=== PATIENT | female | born 1955 | race American Indian/Alaskan Native ===

== ENCOUNTER 2018-07-09 10:50 | Inpatient (IN) | payer SELFPAY ==
--- NOTE | 2018-07-09 11:47 | Emergency Department Report ---
ED Neuro Deficit HPI - General Chief Complaint: Neuro Symptoms/Deficit Stated Complaint: LFT SIDE HEAD PAIN Time Seen by Provider: 07/09/18 11:44 Source: patient Mode of arrival: Ambulatory Limitations: No Limitations - History of Present Illness Initial Comments: Is a 62-year-old female presents emergent with left sided headache and left- sided facial numbness and left-sided arm numbness and left-sided leg numbness. Patient states that this all started at 6 this morning. Patient had a stroke in 2002. Patient states the headache is a 1010. Patient states the pain is better with rest and worse with movement and exertion. Patient states that her last stroke felt the same. Patient states her last stroke left her with no neuro deficits. She denies chest pain shortness of breath. Patient denies abdominal pain. Patient denies blurred vision. She denies dizziness. As noted wellness 6 AM -: Sudden Location: left face, left arm, left leg Presenting Symptoms: Present: Sudden, Severe Headache, Facial Droop/Numbness History of same: Yes Place: home Severity: severe Improves With: rest On Anticoagulants: No Context: sudden onset Associated Symptoms: headaches, weakness. denies: confusion, chest pain, cough , diaphoresis, fever/chills, loss of appetite, malise, nausea/vomiting, vertigo , seizures, shortness of breath, syncope - Related Data Home Medications: Home Medications Medication Instructions Recorded Confirmed Last Taken Losartan [Cozaar] 50 mg PO QDAY 07/09/18 07/09/18 07/09/18 Allergies/Adverse Reactions: Allergies Allergy/AdvReac Type Severity Reaction Status Date / Time No Known Allergies Allergy Unverified 04/16/16 11:10 ED Review of Systems ROS: Stated complaint: LFT SIDE HEAD PAIN Other details as noted in HPI Constitutional: weakness. denies: chills, fever Eyes: denies: eye pain, eye discharge, vision change ENT: denies: ear pain, throat pain Respiratory: denies: cough, shortness of breath, wheezing Cardiovascular: denies: chest pain, palpitations Endocrine: no symptoms reported Gastrointestinal: denies: abdominal pain, nausea, diarrhea Genitourinary: denies: urgency, dysuria, discharge Musculoskeletal: denies: back pain, joint swelling, arthralgia Skin: denies: rash, lesions Neurological: headache, weakness, numbness, abnormal gait Psychiatric: denies: anxiety, depression Hematological/Lymphatic: denies: easy bleeding, easy bruising ED Past Medical Hx - Past Medical History Previous Medical History?: Yes Hx Hypertension: Yes Hx CVA: Yes - Surgical History Past Surgical History?: Yes Additional Surgical History: hysterectomy - Family History Family history: hypertension - Social History Smoking Status: Never Smoker Substance Use Type: None - Medications Home Medications: Home Medications Medication Instructions Recorded Confirmed Last Taken Type Losartan [Cozaar] 50 mg PO QDAY 07/09/18 07/09/18 07/09/18 History ED Neuro Physical Exam - General Limitations: No Limitations General appearance: alert, in no apparent distress Suspected Stroke: Yes - Head Head exam: Present: atraumatic, normocephalic - Eye Eye exam: Present: normal appearance - ENT ENT exam: Present: mucous membranes moist - Neck Neck exam: Present: normal inspection - Respiratory Respiratory exam: Present: normal lung sounds bilaterally. Absent: respiratory distress - Cardiovascular Cardiovascular Exam: Present: regular rate, normal rhythm. Absent: systolic murmur, diastolic murmur, rubs, gallop - GI/Abdominal GI/Abdominal exam: Present: soft, normal bowel sounds - Extremities Exam Extremities exam: Present: normal inspection - Back Exam Back exam: Present: normal inspection - Neurological Exam Neurological exam: Present: alert, oriented X3 - NIHSS Assessment Interval: Baseline 1a. Level of Consciousness: alert/keenly responsive 1b. LOC Questions: answers both correctly 1c. LOC Commands: performs tasks correctly 2. Best Gaze: normal 3. Visual: no visual loss 4. Facial Palsy: minor paralysis 5b. Motor Arm Right: no drift 5a. Motor Arm Left: no drift 6a. Motor Leg Left: no drift 6b. Motor Leg Right: no drift 7. Limb Ataxia: absent 8. Sensory: mild/moderate sensory loss 9. Best Language: no aphasia 10. Dysarthria: normal 11. Extinction/Inattention: no abnormality Total Score: 2 Stroke Severity: Minor Stroke - Psychiatric Psychiatric exam: Present: normal affect, normal mood - Skin Skin exam: Present: warm, dry, intact, normal color. Absent: rash ED Course Vital Signs 07/09/18 07/09/18 07/09/18 11:30 12:22 12:31 Temperature 98.5 F Pulse Rate 74 66 64 Respiratory 20 14 15 Rate Blood Pressure 168/92 O2 Sat by Pulse 99 98 Oximetry 07/09/18 07/09/18 07/09/18 12:45 13:01 13:39 Temperature Pulse Rate 71 62 70 Respiratory 12 15 20 Rate Blood Pressure 178/82 178/82 O2 Sat by Pulse 99 95 95 Oximetry 07/09/18 07/09/18 07/09/18 14:05 14:15 14:31 Temperature Pulse Rate 91 H 66 63 Respiratory 17 16 17 Rate Blood Pressure 178/82 149/64 157/87 O2 Sat by Pulse 94 95 Oximetry 07/09/18 07/09/18 07/09/18 14:45 15:00 15:15 Temperature Pulse Rate 59 L 60 Respiratory 24 32 H Rate Blood Pressure 163/66 158/71 163/66 O2 Sat by Pulse 98 97 91 Oximetry 07/09/18 07/09/18 07/09/18 15:25 15:31 15:45 Temperature Pulse Rate 59 L 64 Respiratory 16 18 15 Rate Blood Pressure 160/68 160/68 O2 Sat by Pulse 99 98 99 Oximetry 07/09/18 07/09/18 07/09/18 16:01 16:15 16:31 Temperature Pulse Rate 67 62 65 Respiratory 18 17 20 Rate Blood Pressure 160/68 160/68 160/68 O2 Sat by Pulse Oximetry 07/09/18 07/09/18 07/09/18 16:45 17:01 17:15 Temperature Pulse Rate 67 71 73 Respiratory 20 14 14 Rate Blood Pressure 160/68 160/68 160/68 O2 Sat by Pulse Oximetry 07/09/18 07/09/18 07/09/18 17:31 17:34 17:45 Temperature Pulse Rate 70 69 Respiratory 21 14 24 Rate Blood Pressure 150/89 150/89 O2 Sat by Pulse 95 97 Oximetry 07/09/18 07/09/18 18:01 18:15 Temperature Pulse Rate 82 76 Respiratory 14 17 Rate Blood Pressure 150/89 150/89 O2 Sat by Pulse 99 97 Oximetry - Reevaluation(s) Reevaluation #1: Normal brain per radiologist. Radiologist called report 07/09/18 12:03 Reevaluation #2: Patient believes she might have had a allergic reaction to CT dye in the past. Patient states she does not have any problems with her breathing or rash is not quite sure what the allergy is but does remember a reaction of some sort. We' ll give patient solu-medrol and Benadryl and continue with a CTA. Patient is agreeable with plan of care 07/09/18 13:36 Discussed all results with patient. Patient agrees with plan of care and admission. Patient admitted to the hospitalist service for further evaluation treatment 07/09/18 15:58 - Consultations Consultation #1: Neurologist consulted. Dr chowdhury, neurologist will see patient. 07/09/18 12:[address] Chowdhury it appears patient has had a CVA but Dr. Chowdhury does not recommend TPA at this time due to patient being outside of the treatment window. However. Dr chowdhury does recommend a CTA of the head and neck at this time. We'll order a CTA and neck and head 07/09/18 13:00 Consultation #2: Hospitalist consulted for admission. Hospitalist to admit patient. Dr. Belle to assume care 07/09/18 15:58 - Lab Data Result diagrams: 07/09/18 12:05 07/09/18 12:56 Lab Results 07/09/18 07/09/18 07/09/18 Range/Units 11:46 12:05 12:56 WBC 4.8 (4.5-11.0) K/mm3 RBC 5.75 H (3.65-5.03) M/mm3 Hgb 13.1 (10.1-14.3) gm/dl Hct 40.1 (30.3-42.9) % MCV 70 L (79-97) fl MCH 23 L (28-32) pg MCHC 33 (30-34) % RDW 16.6 H (13.2-15.2) % Plt Count 290 (140-440) K/mm3 Lymph % (Auto) 50.2 H (13.4-35.0) % [place] % (Auto) 7.9 H (0.0-7.3) % Eos % (Auto) 2.1 (0.0-4.3) % Baso % (Auto) 0.8 (0.0-1.8) % Lymph # 2.4 (1.2-5.4) K/mm3 [place] # 0.4 (0.0-0.8) K/mm3 Eos # 0.1 (0.0-0.4) K/mm3 Baso # 0.0 (0.0-0.1) K/mm3 Seg Neutrophils % 39.0 L (40.0-70.0) % Seg Neutrophils # 1.9 (1.8-7.7) K/mm3 PT 12.9 (12.2-14.9) Sec. INR 0.92 (0.87-1.13) APTT 31.7 (24.2-36.6) Sec. Thrombin Time 32.6 H (15.1-19.6) Sec. Sodium (137-145) mmol/L Potassium (3.6-5.0) mmol/L Chloride (98-107) mmol/L Carbon Dioxide (22-30) mmol/L Anion Gap mmol/L BUN (7-17) mg/dL Creatinine (0.7-1.2) mg/dL Estimated GFR ml/min BUN/Creatinine Ratio % Glucose (65-100) mg/dL POC Glucose 91 (70-105) Calcium (8.4-10.2) mg/dL Total Creatine Kinase (30-135) units/L CK-MB (CK-2) (0.0-4.0) ng/mL CK-MB (CK-2) Rel Index (0-4) Troponin T (0.00-0.029) ng/mL 07/09/18 07/09/18 Range/Units 12:56 12:56 WBC (4.5-11.0) K/mm3 RBC (3.65-5.03) M/mm3 Hgb (10.1-14.3) gm/dl Hct (30.3-42.9) % MCV (79-97) fl MCH (28-32) pg MCHC (30-34) % RDW (13.2-15.2) % Plt Count (140-440) K/mm3 Lymph % (Auto) (13.4-35.0) % [place] % (Auto) (0.0-7.3) % Eos % (Auto) (0.0-4.3) % Baso % (Auto) (0.0-1.8) % Lymph # (1.2-5.4) K/mm3 [place] # (0.0-0.8) K/mm3 Eos # (0.0-0.4) K/mm3 Baso # (0.0-0.1) K/mm3 Seg Neutrophils % (40.0-70.0) % Seg Neutrophils # (1.8-7.7) K/mm3 PT (12.2-14.9) Sec. INR (0.87-1.13) APTT (24.2-36.6) Sec. Thrombin Time (15.1-19.6) Sec. Sodium 137 (137-145) mmol/L Potassium 4.4 (3.6-5.0) mmol/L Chloride 100.3 (98-107) mmol/L Carbon Dioxide 26 (22-30) mmol/L Anion Gap 15 mmol/L BUN 12 (7-17) mg/dL Creatinine 0.8 (0.7-1.2) mg/dL Estimated GFR > 60 ml/min BUN/Creatinine Ratio 15 % Glucose 89 (65-100) mg/dL POC Glucose (70-105) Calcium 8.9 (8.4-10.2) mg/dL Total Creatine Kinase 248 H (30-135) units/L CK-MB (CK-2) 2.8 (0.0-4.0) ng/mL CK-MB (CK-2) Rel Index 1.1 (0-4) Troponin T < 0.010 < 0.010 (0.00-0.029) ng/mL - EKG Data -: EKG Interpreted by Tx EKG shows normal: sinus rhythm, axis, intervals, QRS complexes, ST-T waves Rate: tachycardia - Radiology Data Radiology results: report reviewed CT HEAD WITHOUT CONTRAST: HISTORY: Neurological deficit, stroke. TECHNIQUE: Sequential 2.5mm CT images. COMPARISON: none. FINDINGS: Cerebral Parenchyma: Within normal limits. Cerebellum: Within normal limits. Brainstem: Within normal limits. Ventricles: Normal. Sella: Normal. Extra-axial spaces: Normal. Basal Cisterns: Normal. Intracranial Hemorrhage: None. Midline Shift: None. Calvarium: Normal. Sinuses: Normal. Mastoid Air Cells: Normal. Visualized Orbits: Normal. IMPRESSION: Cranial CT scan within normal limits. These findings were discussed with Dr. Dc in the emergency department at 1202 hrs. Transcribed By: TTR Dictated By: HAILEE RUTH JR, MD Electronically Authenticated By: HAILEE RUTH JR, MD Signed Date/Time: 07/09/18 1202 CTA HEAD: HISTORY: CVA, weakness. TECHNIQUE: Helical CT images after IV contrast with 0.625mm reformations. Sagittal and coronal reformats. Rotational MIP images. 3D volume rendering technique. FINDINGS: The arterial structures of the anterior and posterior circulations are patent throughout. No evidence for stenosis, occlusion or aneurysm. IMPRESSION: Unremarkable CTA head. Transcribed By: TTR Dictated By: HAILEE RUTH JR, MD Electronically Authenticated By: HAILEE RUTH JR, MD Signed Date/Time: 07/09/18 1519 CTA NECK: HISTORY: CVA, weakness. TECHNIQUE: Helical CT following IV contrast. Sagittal and coronal reformatted images. 3D volume rendering technique. Stenosis was calculated using NASCET criteria with the distal ICA being standard diameter. FINDINGS: The visualized aortic arch, innominate artery and proximal bilateral subclavian arteries are widely patent with less than 20% stenosis. Within the right carotid system: Less than 20% stenosis. Within the left carotid system: Less than 20% stenosis. The cervical vertebral arteries are patent with less than 20% stenosis. IMPRESSION: Unremarkable CTA of the neck. Transcribed By: TTR Dictated By: HAILEE RUTH JR, MD Electronically Authenticated By: HAILEE RUTH JR, MD Signed Date/Time: 07/09/18 1518 - Medical Decision Making This 52-year-old female that presented to the emergency room with left-sided weakness and numbness and severe headache. Patient stroke protocol done. Neurology is consulted and saw patient. Recommendations received. Neurologist did not recommend TPA however did recommend a CTA of the brain and neck. CTA of the head and neck were negative. CT of the head was negative. Labs were unremarkable. Patient will be admitted to the hospital service for further eval and treatment. - Differential Diagnosis weakness, numbness, facial droop, CVA dehydration Critical Care Time: Yes Critical care attestation.: If time is entered above; I have spent that time in minutes in the direct care of this critically ill patient, excluding procedure time. Critical Care Time: 45 minute for cc time ED Disposition Clinical Impression: Weakness, Numbness and tingling of left arm and leg, Facial droop CVA (cerebral vascular accident) Qualifiers: CVA mechanism: unspecified Qualified Code(s): I63.9 - Cerebral infarction, unspecified Disposition: - OP ADMIT IP TO THIS HOSP Is pt being admited?: Yes Does the pt Need Aspirin: No Condition: Critical Time of Disposition: 15:59 - Assessment Assessment Interval: Baseline - Level of Consciousness 1a. Level of Consciousness: alert/keenly responsive - LOC Questions 1b. LOC Questions: answers both correctly - LOC Command 1c. LOC Commands: performs tasks correctly - Best Gaze 2. Best Gaze: normal - Visual 3. Visual: no visual loss - Facial Palsy 4. Facial Palsy: minor paralysis - Motor Arm 5b. Motor Arm Right: no drift 5a. Motor Arm Left: no drift - Motor Leg 6a. Motor Leg Left: no drift 6b. Motor Leg Right: no drift - Limb Ataxia 7. Limb Ataxia: absent - Sensory 8. Sensory: mild/moderate sensory loss - Best Language 9. Best Language: no aphasia - Dysarthria 10. Dysarthria: normal - Extinction and Inattention 11. Extinction/Inattention: no abnormality - Scoring Total Score: 2 Stroke Severity: Minor Stroke
--- NOTE | 2018-07-09 12:03 | Cat Scan Report ---
CT HEAD WITHOUT CONTRAST: HISTORY: Neurological deficit, stroke. TECHNIQUE: Sequential 2.5mm CT images. COMPARISON: none. FINDINGS: Cerebral Parenchyma: Within normal limits. Cerebellum: Within normal limits. Brainstem: Within normal limits. Ventricles: Normal. Sella: Normal. Extra-axial spaces: Normal. Basal Cisterns: Normal. Intracranial Hemorrhage: None. Midline Shift: None. Calvarium: Normal. Sinuses: Normal. Mastoid Air Cells: Normal. Visualized Orbits: Normal. IMPRESSION: Cranial CT scan within normal limits. These findings were discussed with Dr. Dc in the emergency department at 1202 hrs.
[2018-07-09 12:29] LABS: Basophils % (Auto) 0.8 % (0.0-1.8); Eosinophils # (Auto) 0.1 K/mm3 (0.0-0.4); Eosinophils % (Auto) 2.1 % (0.0-4.3); Hematocrit 40.1 % (30.3-42.9); Hemoglobin 13.1 gm/dl (10.1-14.3); Lymphocytes # (Auto) 2.4 K/mm3 (1.2-5.4); Lymphocytes % (Auto) 50.2 % (13.4-35.0); Mean Corpuscular HGB Conc 33 % (30-34); Mean Corpuscular Hemoglobin 23 pg (28-32); Mean Corpuscular Volume 70 fl (79-97); Monocytes # (Auto) 0.4 K/mm3 (0.0-0.8); Monocytes % (Auto) 7.9 % (0.0-7.3); Platelet Count 290 K/mm3 (140-440); Red Blood Count 5.75 M/mm3 (3.65-5.03); Red Cell Distribution Width 16.6 % (13.2-15.2)
[2018-07-09 13:16] LABS: INR 0.92 (0.87-1.13)
[2018-07-09 13:17] LABS: Partial Thromboplastin Time 31.7 Sec. (24.2-36.6)
[2018-07-09 13:18] LABS: Thrombin Time 32.6 Sec. (15.1-19.6)
[2018-07-09 13:25] LABS: BUN/Creatinine Ratio 15; Blood Urea Nitrogen 12 mg/dL (7-17); Calcium 8.9 mg/dL (8.4-10.2); Hemolysis Index 1
[2018-07-09 13:28] LABS: Creatine Kinase MB 2.8 ng/mL (0.0-4.0)
[2018-07-09] MEDS ORDERED: SOLU-Medrol IV ONE (13:37)
[2018-07-09] MEDS ORDERED: BENADRYL IV ONE (13:37)
--- NOTE | 2018-07-09 15:19 | Cat Scan Report ---
CTA HEAD: HISTORY: CVA, weakness. TECHNIQUE: Helical CT images after IV contrast with 0.625mm reformations. Sagittal and coronal reformats. Rotational MIP images. 3D volume rendering technique. FINDINGS: The arterial structures of the anterior and posterior circulations are patent throughout. No evidence for stenosis, occlusion or aneurysm. IMPRESSION: Unremarkable CTA head.
--- NOTE | 2018-07-09 15:19 | Cat Scan Report ---
CTA NECK: HISTORY: CVA, weakness. TECHNIQUE: Helical CT following IV contrast. Sagittal and coronal reformatted images. 3D volume rendering technique. Stenosis was calculated using NASCET criteria with the distal ICA being standard diameter. FINDINGS: The visualized aortic arch, innominate artery and proximal bilateral subclavian arteries are widely patent with less than 20% stenosis. Within the right carotid system: Less than 20% stenosis. Within the left carotid system: Less than 20% stenosis. The cervical vertebral arteries are patent with less than 20% stenosis. IMPRESSION: Unremarkable CTA of the neck.
[2018-07-09] MEDS ORDERED: MORPHINE IV PRN (17:02)
[2018-07-09] MEDS ORDERED: MORPHINE ONE ×2 (17:07→21:32)
[2018-07-09] MEDS ORDERED: DILAUDID ONE (18:02)
[2018-07-09] MEDS ORDERED: DILAUDID IV ONE (18:05)
--- NOTE | 2018-07-09 21:55 | History and Physical Report ---
History of Present Illness Date of examination: 07/09/18 Date of admission: 07/09/18 16:07 Chief complaint: Chief complaint: Left-sided weakness History of present illness: History of Present Illness: 62-year-old female presents with left-sided headache and left-sided facial numbness and left-sided arm numbness and left lower extremity numbness since 6 AM this morning. Patient says that the numbness is better she also has weakness on the left side to some extent. Patient had a stroke in 2002 for which she has recovered no neuro deficits. No syncope or chest pain. The complaint is more in favor of left-sided numbness. No exacerbating or relieving factors Past Medical History Previous Medical History?: Yes Hx Hypertension: Yes Hx CVA: Yes Surgical History Past Surgical History?: Yes Additional Surgical History: hysterectomy Family History Family history: hypertension Social History Smoking Status: Never Smoker Substance Use Type: None -Medications Home Medications: Home Medications Medication Instructions Recorded Confirmed Last Taken Type Losartan [Cozaar] 50 mg PO QDAY 07/09/18 07/09/18 07/09/18 History Review of Systems ROS: Stated complaint: LFT SIDE HEAD PAIN Other details as noted in HPI Constitutional: weakness. denies: chills, fever Eyes: denies: eye pain, eye discharge, vision change ENT: denies: ear pain, throat pain Respiratory: denies: cough, shortness of breath, wheezing Cardiovascular: denies: chest pain, palpitations Endocrine: no symptoms reported Gastrointestinal: denies: abdominal pain, nausea, diarrhea Genitourinary: denies: urgency, dysuria, discharge Musculoskeletal: denies: back pain, joint swelling, arthralgia Skin: denies: rash, lesions Neurological: headache, weakness, numbness, abnormal gait Psychiatric: denies: anxiety, depression Hematological/Lymphatic: denies: easy bleeding, easy bruising Medications and Allergies Allergies Allergy/AdvReac Type Severity Reaction Status Date / Time No Known Allergies Allergy Unverified 04/16/16 11:10 Home Medications Medication Instructions Recorded Confirmed Last Taken Type Losartan [Cozaar] 50 mg PO QDAY 07/09/18 07/09/18 07/09/18 History Active Meds: Active Medications Morphine Sulfate (Morphine) 2 mg IV Q4H PRN PRN Reason: Pain, Moderate (4-6) Last Admin: 07/09/18 17:34 Dose: 2 mg Exam - Physical Exam Narrative exam: Lying in bed comfortably - Constitutional Vitals: Temp Pulse Resp BP Pulse Ox 98.5 F 73 17 153/81 95 07/09/18 11:30 07/09/18 20:15 07/09/18 20:15 07/09/18 20:15 07/09/18 20:15 General appearance: Present: no acute distress, well-nourished - EENT Eyes: Present: PERRL ENT: hearing intact, clear oral mucosa - Neck Neck: Present: supple, normal ROM - Respiratory Respiratory effort: normal Respiratory: bilateral: CTA - Cardiovascular Heart rate: 64 Rhythm: regular (64) Heart Sounds: Present: S1 & S2. Absent: rub, click - Extremities Extremities: pulses symmetrical, No edema Peripheral Pulses: within normal limits - Abdominal General gastrointestinal: Present: soft, non-tender, non-distended, normal bowel sounds Female genitourinary: Present: normal - Rectal Rectal Exam: deferred - Integumentary Integumentary: Present: clear, warm, dry - Musculoskeletal Musculoskeletal: left sided weakness (mild left-sided weakness present. 4 over 5 power in left upper extremity and left lower extremity. Sensation decreased.) - Psychiatric Psychiatric: appropriate mood/affect, intact judgment & insight, memory intact, cooperative - Neurologic Neurologic: CNII-XII intact, focal deficits (left-sided weakness), moves all extremities, gait normal (gait could not be tested) Results - Labs CBC & Chem 7: 07/09/18 12:05 07/09/18 12:56 Labs: Laboratory Last Values WBC 4.8 K/mm3 (4.5-11.0) 07/09/18 12:05 RBC 5.75 M/mm3 (3.65-5.03) H 07/09/18 12:05 Hgb 13.1 gm/dl (10.1-14.3) 07/09/18 12:05 Hct 40.1 % (30.3-42.9) 07/09/18 12:05 MCV 70 fl (79-97) L 07/09/18 12:05 MCH 23 pg (28-32) L 07/09/18 12:05 MCHC 33 % (30-34) 07/09/18 12:05 RDW 16.6 % (13.2-15.2) H 07/09/18 12:05 Plt Count 290 K/mm3 (140-440) 07/09/18 12:05 Lymph % (Auto) 50.2 % (13.4-35.0) H 07/09/18 12:05 [place] % (Auto) 7.9 % (0.0-7.3) H 07/09/18 12:05 Eos % (Auto) 2.1 % (0.0-4.3) 07/09/18 12:05 Baso % (Auto) 0.8 % (0.0-1.8) 07/09/18 12:05 Lymph # 2.4 K/mm3 (1.2-5.4) 07/09/18 12:05 [place] # 0.4 K/mm3 (0.0-0.8) 07/09/18 12:05 Eos # 0.1 K/mm3 (0.0-0.4) 07/09/18 12:05 Baso # 0.0 K/mm3 (0.0-0.1) 07/09/18 12:05 Seg Neutrophils % 39.0 % (40.0-70.0) L 07/09/18 12:05 Seg Neutrophils # 1.9 K/mm3 (1.8-7.7) 07/09/18 12:05 PT 12.9 Sec. (12.2-14.9) 07/09/18 12:56 INR 0.92 (0.87-1.13) 07/09/18 12:56 APTT 31.7 Sec. (24.2-36.6) 07/09/18 12:56 Thrombin Time 32.6 Sec. (15.1-19.6) H 07/09/18 12:56 Sodium 137 mmol/L (137-145) 07/09/18 12:56 Potassium 4.4 mmol/L (3.6-5.0) 07/09/18 12:56 Chloride 100.3 mmol/L (98-107) 07/09/18 12:56 Carbon Dioxide 26 mmol/L (22-30) 07/09/18 12:56 Anion Gap 15 mmol/L 07/09/18 12:56 BUN 12 mg/dL (7-17) 07/09/18 12:56 Creatinine 0.8 mg/dL (0.7-1.2) 07/09/18 12:56 Estimated GFR > 60 ml/min 07/09/18 12:56 BUN/Creatinine Ratio 15 % 07/09/18 12:56 Glucose 89 mg/dL (65-100) 07/09/18 12:56 POC Glucose 91 (70-105) 07/09/18 11:46 Calcium 8.9 mg/dL (8.4-10.2) 07/09/18 12:56 Total Creatine Kinase 248 units/L (30-135) H 07/09/18 12:56 CK-MB (CK-2) 2.8 ng/mL (0.0-4.0) 07/09/18 12:56 CK-MB (CK-2) Rel Index 1.1 (0-4) 07/09/18 12:56 Troponin T < 0.010 ng/mL (0.00-0.029) 07/09/18 12:56 - Imaging and Cardiology EKG: report reviewed (normal sinus rhythm heart rate of 64 per minute) Imaging and Cardiology: CTA head FINDINGS: The arterial structures of the anterior and posterior circulations are patent throughout. No evidence for stenosis, occlusion or aneurysm. IMPRESSION: Unremarkable CTA head. CT of the neck FINDINGS: The visualized aortic arch, innominate artery and proximal bilateral subclavian arteries are widely patent with less than 20% stenosis. Within the right carotid system: Less than 20% stenosis. Within the left carotid system: Less than 20% stenosis. The cervical vertebral arteries are patent with less than 20% stenosis. IMPRESSION: Unremarkable CTA of the neck. CT head IMPRESSION: Cranial CT scan within normal limits. These findings were discussed with Dr. Dc in the emergency department at 1202 hrs. Assessment and Plan Advance Directives: Yes (full code) VTE prophylaxis?: Chemical Plan of care discussed with patient/family: Yes - Patient Problems (1) CVA (cerebral vascular accident) Current Visit: Yes Status: Acute Qualifiers: CVA mechanism: unspecified Qualified Code(s): I63.9 - Cerebral infarction, unspecified Plan to address problem: Possible thalamic stroke in view of left-sided numbness CT angiogram of the neck and head are negative We will get MRI echocardiogram and carotid duplex scan. Neurologic consult by Dr. brandon. Plavix initiated (2) Numbness and tingling of left arm and leg Current Visit: Yes Status: Acute Plan to address problem: Same as above (3) Hypertension Current Visit: Yes Status: Chronic Qualifiers: Hypertension type: essential hypertension Qualified Code(s): I10 - Essential (primary) hypertension Plan to address problem: Continue antihypertensives (4) DVT prophylaxis Current Visit: Yes Status: Acute Plan to address problem: Patient on Lovenox GI prophylaxis initiated
[2018-07-09] MEDS ORDERED: AMBIEN PO PRN (22:00)
[2018-07-09] MEDS ORDERED: TYLENOL PO PRN (22:00)
[2018-07-09] MEDS ORDERED: ZOFRAN IV PRN (22:00)
[2018-07-09] MEDS ORDERED: SODIUM CHLORIDE FLUSH SYRINGE 10 ML IV PRN ×2 (22:00→22:03)
[2018-07-09] MEDS ORDERED: PERCOCET 5/325 PO PRN ×2 (22:00→22:10)
[2018-07-09] MEDS ORDERED: APRESOLINE IV PRN (22:03)
[2018-07-09] MEDS: PEPCID PO SCH (22:35)
[2018-07-09] MEDS: SODIUM CHLORIDE FLUSH SYRINGE 10 ML IV SCH (22:35)
[2018-07-10 06:28] LABS: Basophils % (Auto) 0.1 % (0.0-1.8); Hematocrit 40.4 % (30.3-42.9); Hemoglobin 12.9 gm/dl (10.1-14.3); Lymphocytes # (Auto) 0.8 K/mm3 (1.2-5.4); Lymphocytes % (Auto) 8.6 % (13.4-35.0); Mean Corpuscular HGB Conc 32 % (30-34); Mean Corpuscular Volume 71 fl (79-97); Monocytes # (Auto) 0.4 K/mm3 (0.0-0.8); Monocytes % (Auto) 4.1 % (0.0-7.3); Platelet Count 270 K/mm3 (140-440); Red Blood Count 5.67 M/mm3 (3.65-5.03)
[2018-07-10 06:29] LABS: Mean Corpuscular Hemoglobin 23 pg (28-32)
[2018-07-10 06:50] LABS: Alanine Aminotransferase 13 units/L (7-56); Albumin 3.9 g/dL (3.9-5); BUN/Creatinine Ratio 18; Blood Urea Nitrogen 16 mg/dL (7-17); LDL Cholesterol,Direct 139 mg/dL (50-130)
[2018-07-10 06:51] LABS: HDL Cholesterol 51 mg/dL (40-59); Hemolysis Index 3
[2018-07-10] MEDS ORDERED: ATIVAN IV NR (09:00)
--- NOTE | 2018-07-10 14:09 | Progress Note ---
Assessment and Plan Assessment and plan: Patient is a 62 yo woman with a history of hypertension and CVA without deficits who pw headaches, left sided numbness. * CT head without contrast report as normal * CTA head and CTA neck reported as unremarkable CVA (cerebral vascular accident) Current Visit: Yes Status: Acute Qualifiers: CVA mechanism: unspecified Qualified Code(s): I63.9 - Cerebral infarction, unspecified Plan to address problem: Possible thalamic stroke in view of left-sided numbness CT angiogram of the neck and head are negative We will get MRI echocardiogram and carotid duplex scan. Neurologic consult by Dr. brandon. Plavix initiated Numbness and tingling of left arm and leg Current Visit: Yes Status: Acute Plan to address problem: Same as above Hypertension Current Visit: Yes Status: Chronic Qualifiers: Hypertension type: essential hypertension Qualified Code(s): I10 - Essential (primary) hypertension Plan to address problem: Continue antihypertensives DVT prophylaxis Current Visit: Yes Status: Acute Plan to address problem: Patient on Lovenox GI prophylaxis initiated Disposition: continue inpatient care, if mri negative for stroke, will discharge and attriibute her symptoms to spinal dysfunction and recommend outpatient ortho spine surgeon referral . History Interval history: Patient was seen and examined. Follow-up on current diagnosis of headaches which has improved. Overnight uneventful. Patient denies any chest pain, shortness breath, nausea/vomiting. Imaging, nursing note, chart, labs and old chart reviewed. Discussed with patient. 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 Neuro: CN 2-12 grossly intact, no new focal deficits Psych: calm - Constitutional Vitals: Temp Pulse Resp BP Pulse Ox 97.8 F 66 20 136/84 98 07/10/18 08:01 07/10/18 08:01 07/10/18 08:01 07/10/18 08:01 07/10/18 08:01 General appearance: Present: no acute distress, well-nourished Results - Labs CBC & Chem 7: 07/10/18 05:39 07/10/18 05:39 Labs: Laboratory Last Values WBC 9.7 K/mm3 (4.5-11.0) 07/10/18 05:39 RBC 5.67 M/mm3 (3.65-5.03) H 07/10/18 05:39 Hgb 12.9 gm/dl (10.1-14.3) 07/10/18 05:39 Hct 40.4 % (30.3-42.9) 07/10/18 05:39 MCV 71 fl (79-97) L 07/10/18 05:39 MCH 23 pg (28-32) L 07/10/18 05:39 MCHC 32 % (30-34) 07/10/18 05:39 RDW 16.0 % (13.2-15.2) H 07/10/18 05:39 Plt Count 270 K/mm3 (140-440) 07/10/18 05:39 Lymph % (Auto) 8.6 % (13.4-35.0) L 07/10/18 05:39 [place] % (Auto) 4.1 % (0.0-7.3) 07/10/18 05:39 Eos % (Auto) 0.0 % (0.0-4.3) 07/10/18 05:39 Baso % (Auto) 0.1 % (0.0-1.8) 07/10/18 05:39 Lymph # 0.8 K/mm3 (1.2-5.4) L 07/10/18 05:39 [place] # 0.4 K/mm3 (0.0-0.8) 07/10/18 05:39 Eos # 0.0 K/mm3 (0.0-0.4) 07/10/18 05:39 Baso # 0.0 K/mm3 (0.0-0.1) 07/10/18 05:39 Seg Neutrophils % 87.2 % (40.0-70.0) H 07/10/18 05:39 Seg Neutrophils # 8.4 K/mm3 (1.8-7.7) H 07/10/18 05:39 PT 12.9 Sec. (12.2-14.9) 07/09/18 12:56 INR 0.92 (0.87-1.13) 07/09/18 12:56 APTT 31.7 Sec. (24.2-36.6) 07/09/18 12:56 Thrombin Time 32.6 Sec. (15.1-19.6) H 07/09/18 12:56 Sodium 138 mmol/L (137-145) 07/10/18 05:39 Potassium 4.4 mmol/L (3.6-5.0) 07/10/18 05:39 Chloride 103.6 mmol/L (98-107) 07/10/18 05:39 Carbon Dioxide 22 mmol/L (22-30) 07/10/18 05:39 Anion Gap 17 mmol/L 07/10/18 05:39 BUN 16 mg/dL (7-17) 07/10/18 05:39 Creatinine 0.9 mg/dL (0.7-1.2) 07/10/18 05:39 Estimated GFR > 60 ml/min 07/10/18 05:39 BUN/Creatinine Ratio 18 % 07/10/18 05:39 Glucose 173 mg/dL (65-100) H 07/10/18 05:39 POC Glucose 91 (70-105) 07/09/18 11:46 Hemoglobin A1c 5.7 % (4-6) 07/09/18 22:52 Calcium 9.0 mg/dL (8.4-10.2) 07/10/18 05:39 Total Bilirubin 0.20 mg/dL (0.1-1.2) 07/10/18 05:39 AST 18 units/L (5-40) 07/10/18 05:39 ALT 13 units/L (7-56) 07/10/18 05:39 Alkaline Phosphatase 77 units/L (35-129) 07/10/18 05:39 Total Creatine Kinase 248 units/L (30-135) H 07/09/18 12:56 CK-MB (CK-2) 2.8 ng/mL (0.0-4.0) 07/09/18 12:56 CK-MB (CK-2) Rel Index 1.1 (0-4) 07/09/18 12:56 Troponin T < 0.010 ng/mL (0.00-0.029) 07/09/18 12:56 Total Protein 6.9 g/dL (6.3-8.2) 07/10/18 05:39 Albumin 3.9 g/dL (3.9-5) 07/10/18 05:39 Albumin/Globulin Ratio 1.3 % 07/10/18 05:39 Triglycerides 190 mg/dL (2-149) H 07/10/18 05:39 Cholesterol 204 mg/dL (50-199) H 07/10/18 05:39 LDL Cholesterol Direct 139 mg/dL (50-130) H 07/10/18 05:39 HDL Cholesterol 51 mg/dL (40-59) 07/10/18 05:39 Cholesterol/HDL Ratio 4.00 % 07/10/18 05:39
--- NOTE | 2018-07-10 14:24 | Consultation ---
History of Present Illness Consult date: 07/10/18 Requesting physician: KENYA AGUILAR Reason for Consult: left numbness and headache History of present illness: 62 year old female with history of hypertension, awakened in the a.m. of with left posterior headache, numbness and tingling of the left face, arm and leg. She states that the headache comes on fast, lasts for 2 to 3 minutes and goes away. The pain is severe. Dilaudid has been helping. She has also been feeling dizzy, unsteady. She felt the same way when she had a stroke in 2002. She has not bween on ASA or lipid lowering agent. She smokes on and off up to half pack per day. (15 years ) Past History Past Medical History: hypertension Social history: lives with family Medications and Allergies Allergies Allergy/AdvReac Type Severity Reaction Status Date / Time No Known Allergies Allergy Unverified 04/16/16 11:10 Home Medications Medication Instructions Recorded Confirmed Last Taken Type Losartan [Cozaar] 50 mg PO QDAY 07/09/18 07/09/18 07/09/18 History Active Meds: Active Medications Acetaminophen (Tylenol) 650 mg PO Q4H PRN PRN Reason: Pain MILD(1-3)/Fever >100.5/GRIMM Aspirin (Aspirin) 325 mg PO QDAY [facility] Atorvastatin Calcium (Lipitor) 40 mg PO QHS [facility] Clopidogrel Bisulfate (Plavix) 75 mg PO QDAY [facility] Enoxaparin Sodium (Lovenox) 40 mg SUB-Q QDAY@2200 [facility] Famotidine (Pepcid) 20 mg PO BID [facility] Last Admin: 07/09/18 22:35 Dose: 20 mg Hydralazine HCl (Apresoline) 5 mg IV Q6H PRN PRN Reason: Keep SBP between 160-185 mm Hg Hydromorphone HCl (Dilaudid) 1 mg IV Q4H PRN PRN Reason: Pain , Severe (7-10) Losartan Potassium (Cozaar) 50 mg PO QDAY [facility] Ondansetron HCl (Zofran) 4 mg IV Q8H PRN PRN Reason: Nausea And Vomiting Oxycodone/Acetaminophen (Percocet 5/325) 2 tab PO Q6H PRN PRN Reason: Pain, Moderate (4-6) Last Admin: 07/09/18 22:35 Dose: 2 tab Sodium Chloride (Sodium Chloride Flush Syringe 10 Ml) 10 ml IV BID [facility] Last Admin: 07/09/18 22:35 Dose: 10 ml Sodium Chloride (Sodium Chloride Flush Syringe 10 Ml) 10 ml IV PRN PRN PRN Reason: LINE FLUSH Sodium Chloride (Sodium Chloride Flush Syringe 10 Ml) 10 ml IV PRN PRN PRN Reason: LINE FLUSH Zolpidem Tartrate (Ambien) 5 mg PO QHS PRN PRN Reason: Insomnia Physical Examination - Vital Signs Vital Signs: Vital Signs Temp Pulse Resp BP Pulse Ox 98.5 F 74 20 168/92 99 07/09/18 11:30 07/09/18 11:30 07/09/18 11:30 07/09/18 11:30 07/09/18 11:30 - Physical Exam Narrative exam: Sitting up comfortably at the bedside. Neurological - speech fluent, no dysarthria. customer assistance associate - intact EOMs Cranial nerve V intact bilaterally. tongue midline. Hearing intact. Motor - Symmetric. poor effort in upper extremities. 5/5 LEs Reflexes - trace throughout. Sensory - reports intact sensation to touch bilaterally. Cerebellar - FTN, Chana, fine finger movements intact. Can stand up independently. Dizzy with standing. - Assessment Assessment Interval: Baseline - Level of Consciousness 1a. Level of Consciousness: alert/keenly responsive - LOC Questions 1b. LOC Questions: answers both correctly - LOC Command 1c. LOC Commands: performs tasks correctly - Best Gaze 2. Best Gaze: normal - Visual 3. Visual: no visual loss - Facial Palsy 4. Facial Palsy: minor paralysis - Motor Arm 5b. Motor Arm Right: no drift - Motor Leg 6a. Motor Leg Left: no drift - Limb Ataxia 7. Limb Ataxia: absent - Sensory 8. Sensory: mild/moderate sensory loss - Best Language 9. Best Language: no aphasia - Dysarthria 10. Dysarthria: normal - Extinction and Inattention 11. Extinction/Inattention: no abnormality Results - Laboratory Findings CBC and BMP: 07/10/18 05:39 07/10/18 05:39 Abnormal Lab Findings: Abnormal Labs 07/09/18 07/09/18 07/09/18 12:05 12:56 12:56 RBC 5.75 H MCV 70 L MCH 23 L RDW 16.6 H Lymph % (Auto) 50.2 H [place] % (Auto) 7.9 H Lymph # Seg Neutrophils % 39.0 L Seg Neutrophils # Thrombin Time 32.6 H Glucose Total Creatine Kinase 248 H Triglycerides Cholesterol LDL Cholesterol Direct 07/10/18 07/10/18 05:39 05:39 RBC 5.67 H MCV 71 L MCH 23 L RDW 16.0 H Lymph % (Auto) 8.6 L [place] % (Auto) Lymph # 0.8 L Seg Neutrophils % 87.2 H Seg Neutrophils # 8.4 H Thrombin Time Glucose 173 H Total Creatine Kinase Triglycerides 190 H Cholesterol 204 H LDL Cholesterol Direct 139 H Assessment and Plan 62 year old female with left facial numbness and limb numbness on day of admission. Seems better now. Ice pick type headache persists. CT brain, CTA brain and neck thus far unremarkable. Headache may be due to occipital neuralgia. Plan - complete stroke work-up. ASA, atorvastatin Neurontin 100 mg q 8 for headache, may increase to 300 mg q 8 if no relief. ordered thyroid panel and B-12 level
[2018-07-10] MEDS: COZAAR PO SCH (14:56)
[2018-07-10] MEDS: SODIUM CHLORIDE FLUSH SYRINGE 10 ML IV SCH ×2 (14:57→21:56)
[2018-07-10] MEDS: PLAVIX PO SCH (14:57)
[2018-07-10] MEDS: ASPIRIN PO SCH (14:57)
[2018-07-10] MEDS: PEPCID PO SCH ×2 (14:57→21:55)
[2018-07-10] MEDS: DILAUDID IV PRN ×2 (14:58→18:42)
[2018-07-10 16:49] LABS: Free T4 (Free Thyroxine) 0.99 ng/dL (0.76-1.46)
[2018-07-10] MEDS: NEURONTIN PO SCH (21:55)
[2018-07-10] MEDS ORDERED: LOVENOX SUB-Q SCH (22:00)
[2018-07-11] MEDS: DILAUDID IV PRN ×2 (04:09→09:25)
[2018-07-11] MEDS: NEURONTIN PO SCH ×3 (04:10→13:25)
[2018-07-11] MEDS: COZAAR PO SCH (09:02)
[2018-07-11] MEDS: PLAVIX PO SCH (09:03)
[2018-07-11] MEDS: PEPCID PO SCH (09:03)
[2018-07-11] MEDS: ASPIRIN PO SCH (09:03)
[2018-07-11] MEDS: SODIUM CHLORIDE FLUSH SYRINGE 10 ML IV SCH (09:04)
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
[2018-07-11 13:29] VITALS: BP 160/92
--- NOTE | 2018-07-13 08:54 | Magnetic Resonance Report ---
FINAL REPORT EXAM: MRI BRAIN WO CONTRAST HISTORY: STROKE LEFT SIDE WEAKNESS REPEATS PT MOTION PT SEDATED PRIOR TO EXAM BA: 07/10/2018 TECHNIQUE: Multiplanar multisequence brain MR imaging without IV contrast. PRIORS: None. FINDINGS: There is nonspecific CSF prominence in the sella turcica. This may reflect pituitary atrophy, empty sella syndrome, and/or developmental variation. Moderate multifocal T2 hyperintensity throughout the left mastoid air cells is nonspecific. Minimal mucosal thickening right mastoid air cells. Visible paranasal sinuses are clear. The included air filled sinuses contain no acute fluid level. There is ventricular and sulcal prominence compatible with global symmetric cerebrocortical atrophy. The brain is without mass, mass effect, hemorrhage, or acute infarct. There are no areas of brain restricted diffusion to suggest an acute ischemic infarct. There is no midline shift or brain edema. IMPRESSION: No acute CVA or brain mass Left mastoid air cells abnormal T2 hyperintensity may reflect eustachian tube dysfunction. Differential includes left mastoiditis
== END 2018-07-11 17:50 | disposition home or self-care (01) | DRG 74 ==
LOC: ED 10:50 → 4A 16:07
PROVIDERS: ADMIT Internal Medicine; ATTEND Internal Medicine
DX: G62.9 Polyneuropathy, unspecified (principal); G95.9 Disease of spinal cord, unspecified; H70.92 Unspecified mastoiditis, left ear; I10 Essential (primary) hypertension; F41.9 Anxiety disorder, unspecified; E78.5 Hyperlipidemia, unspecified; R29.702 NIHSS score 2; F17.200 Nicotine dependence, unspecified, uncomplicated; Z79.899 Other long term (current) drug therapy; Z86.73 Personal history of transient ischemic attack (TIA), and cerebral infarction without residual deficits; Z90.710 Acquired absence of both cervix and uterus; Z82.49 Family history of ischemic heart disease and other diseases of the circulatory system
CPT/HCPCS: 36415; 70450; 70496; 70498; 70551; 80048; 80053; 80061; 82550; 82553; 82607; 82962; 83036; 84439; 84443; 84484; 85025; 85610; 85670; 85730; 93005; 93010; 93306; 93880; 99406; A9270-GY; J1170; J1200; J1650; J2060; J2270; J2930; Q9967

== ENCOUNTER 2019-09-20 14:41 | Inpatient (IN) | payer OTHER ==
--- NOTE | 2019-09-20 15:01 | Event Note ---
ED Screening Note ED Screening Note: possible syncope while at [facility] states she was having a GRIMM and shoulder pain +lightheaded no CP states she has mild exertional SOB +smoker +marijuana PMHx HTN This initial assessment/diagnostic orders/clinical plan/treatment(s) is/are subject to change based on patients health status, clinical progression and re- assessment by fellow clinical providers in the ED. Further treatment and workup at subsequent clinical providers discretion. Patient/guardian urged not to elope from the ED as their condition may be serious if not clinically assessed and managed. Initial orders include: labs, UDS, UA, CT head, EKG
[2019-09-20 15:37] LABS: Basophils # (Auto) 0.1 K/mm3 (0.0-0.1); Basophils % (Auto) 1.1 % (0.0-1.8); Eosinophils # (Auto) 0.1 K/mm3 (0.0-0.4); Eosinophils % (Auto) 1.3 % (0.0-4.3); Hematocrit 42.1 % (30.3-42.9); Hemoglobin 13.3 gm/dl (10.1-14.3); Lymphocytes # (Auto) 2.6 K/mm3 (1.2-5.4); Lymphocytes % (Auto) 51.9 % (13.4-35.0); Mean Corpuscular HGB Conc 32 % (30-34); Mean Corpuscular Volume 72 fl (79-97); Monocytes # (Auto) 0.4 K/mm3 (0.0-0.8); Monocytes % (Auto) 8.5 % (0.0-7.3); Platelet Count 262 K/mm3 (140-440); Red Blood Count 5.87 M/mm3 (3.65-5.03); Red Cell Distribution Width 16.3 % (13.2-15.2)
[2019-09-20 15:56] LABS: Bacteria,Urine 1+ /HPF (Negative); Mucus,Urine FEW /HPF; RBC,Urine < 1.0 /HPF (0.0-6.0)
[2019-09-20 15:57] LABS: Color,Urine Colorless (Yellow); PH,Urine 6.5 (5.0-7.0)
[2019-09-20 15:58] LABS: Ictotest,Urine Negative (Negative); Protein,Urine <15 mg/dL mg/dL (Negative); Urobilinogen,Urine < 2.0 mg/dL (<2.0)
[2019-09-20 16:19] LABS: Creatine Kinase MB 2.7 ng/mL (0.0-4.0)
[2019-09-20 16:21] LABS: Alanine Aminotransferase 10 units/L (7-56); Albumin 4.3 g/dL (3.9-5); BUN/Creatinine Ratio 14; Blood Urea Nitrogen 13 mg/dL (7-17); Calcium 9.3 mg/dL (8.4-10.2); Hemolysis Index 4
[2019-09-20 16:22] LABS: Amphetamine Screen,Urine PRESUMPTIVE NEGATIVE; Benzodiazepines Screen,Urine PRESUMPTIVE NEGATIVE; Cocaine Screen,Urine PRESUMPTIVE NEGATIVE; Methadone Screen,Urine PRESUMPTIVE NEGATIVE; Opiate Screen,Urine PRESUMPTIVE NEGATIVE
[2019-09-20 16:35] LABS: Cannabinoid Screen,Urine PRESUMPTIVE POSITIVE
--- NOTE | 2019-09-20 17:08 | Cat Scan Report ---
CT BRAIN: 09/20/2019 INDICATION / CLINICAL INFORMATION: lightheaded, possible syncope. COMPARISON: MRI brain 07/10/2018 FINDINGS: BRAIN/INTRACRANIAL STRUCTURES: Unenhanced CT images of the brain demonstrate no evidence of acute int racranial abnormality. Ventricles and sulci are normal in size and shape. There is no evidence of hemorrhage or mass. There are no abnormal extra-axial fluid collections. EXTRACRANIAL STRUCTURES: Unremarkable. IMPRESSION: No acute abnormality. No change when correlated with a prior brain MRI. All CT scans at this location are performed using dose reduction to ALARA by means of automated expos ure control. Signer Name: Woody Cisneros MD Signed: 09/20/2019 5:04 PM Workstation Name: [id number]
--- NOTE | 2019-09-20 18:57 | Emergency Department Report ---
ED General Adult HPI - General Chief complaint: Syncope Stated complaint: FAINT/HBP/WEAK Time Seen by Provider: 09/20/19 14:58 Source: patient Mode of arrival: Wheelchair Limitations: No Limitations - History of Present Illness Initial comments: The patient presents to the emergency department with a chief complaint syncopal episode at [employer] while shopping. She also complains of being slightly dizzy and have an abnormal gait. Patient denies chest pain, son's breath, or headache. -: Sudden Severity scale (0 -10): 0 Consistency: constant Improves with: none Worsens with: none Associated Symptoms: denies other symptoms Treatments Prior to Arrival: none - Related Data Previous Rx's Medication Instructions Recorded Last Taken Type ALPRAZolam [Xanax TAB] 0.5 mg PO TID PRN #15 tab 07/11/18 Unknown Rx Acetaminophen [Acetaminophen TAB] 650 mg PO Q4H PRN #15 tablet 07/11/18 Unknown Rx Amoxicillin/Potassium Clav 1 each PO BID #20 tablet 07/11/18 Unknown Rx [Augmentin 875-125 Tablet] Aspirin 325 mg PO QDAY #30 tablet 07/11/18 Unknown Rx AtorvaSTATin [Lipitor] 40 mg PO QHS #30 tablet 07/11/18 Unknown Rx Famotidine [Pepcid] 20 mg PO BID #10 tablet 07/11/18 Unknown Rx Gabapentin 100 mg PO Q8HR #90 capsule 07/11/18 Unknown Rx Losartan [Cozaar] 50 mg PO QDAY #30 tablet 07/11/18 Unknown Rx oxyCODONE /ACETAMINOPHEN [Percocet 1 tab PO Q6H PRN #12 tablet 07/11/18 Unknown Rx 5/325 mg] Allergies Allergy/AdvReac Type Severity Reaction Status Date / Time No Known Allergies Allergy Verified 09/20/19 15:01 ED Review of Systems ROS: Stated complaint: FAINT/HBP/WEAK Other details as noted in HPI Constitutional: denies: chills, fever Eyes: denies: eye pain, eye discharge, vision change ENT: denies: ear pain, throat pain Respiratory: denies: cough, shortness of breath, wheezing Cardiovascular: denies: chest pain, palpitations Endocrine: no symptoms reported Gastrointestinal: denies: abdominal pain, nausea, diarrhea Genitourinary: denies: urgency, dysuria, discharge Musculoskeletal: denies: back pain, joint swelling, arthralgia Skin: denies: rash, lesions Neurological: other (syncope;dizziness). denies: headache, weakness, paresthesias Psychiatric: denies: anxiety, depression Hematological/Lymphatic: denies: easy bleeding, easy bruising ED Past Medical Hx - Past Medical History Hx Hypertension: Yes Hx CVA: Yes - Surgical History Additional Surgical History: hysterectomy - Social History Smoking Status: Current Some Day Smoker Substance Use Type: Marijuana - Medications Home Medications: Home Medications Medication Instructions Recorded Confirmed Last Taken Type ALPRAZolam [Xanax TAB] 0.5 mg PO TID PRN #15 tab 07/11/18 Unknown Rx Acetaminophen [Acetaminophen TAB] 650 mg PO Q4H PRN #15 tablet 07/11/18 Unknown Rx Amoxicillin/Potassium Clav 1 each PO BID #20 tablet 07/11/18 Unknown Rx [Augmentin 875-125 Tablet] Aspirin 325 mg PO QDAY #30 tablet 07/11/18 Unknown Rx AtorvaSTATin [Lipitor] 40 mg PO QHS #30 tablet 07/11/18 Unknown Rx Famotidine [Pepcid] 20 mg PO BID #10 tablet 07/11/18 Unknown Rx Gabapentin 100 mg PO Q8HR #90 capsule 07/11/18 Unknown Rx Losartan [Cozaar] 50 mg PO QDAY #30 tablet 07/11/18 Unknown Rx oxyCODONE /ACETAMINOPHEN [Percocet 1 tab PO Q6H PRN #12 tablet 07/11/18 Unknown Rx 5/325 mg] ED Physical Exam - General Limitations: No Limitations General appearance: alert, in no apparent distress - Head Head exam: Present: atraumatic, normocephalic - Eye Eye exam: Present: normal appearance, PERRL, EOMI - ENT ENT exam: Present: mucous membranes moist - Neck Neck exam: Present: normal inspection - Respiratory Respiratory exam: Present: normal lung sounds bilaterally. Absent: respiratory distress, wheezes - Cardiovascular Cardiovascular Exam: Present: regular rate, normal rhythm. Absent: systolic murmur, diastolic murmur, rubs, gallop - GI/Abdominal GI/Abdominal exam: Present: soft, normal bowel sounds. Absent: distended, tenderness - Extremities Exam Extremities exam: Present: normal inspection - Back Exam Back exam: Present: normal inspection - Neurological Exam Neurological exam: Present: alert, oriented X3, CN II-XII intact, abnormal gait. Absent: motor sensory deficit - Psychiatric Psychiatric exam: Present: normal affect, normal mood - Skin Skin exam: Present: warm, dry, intact, normal color. Absent: rash ED Course Vital Signs 09/20/19 09/20/19 09/20/19 14:45 18:24 18:30 Temperature 97.9 F Pulse Rate 68 73 71 Respiratory 18 8 L 27 H Rate Blood Pressure 158/98 145/92 O2 Sat by Pulse 100 96 94 Oximetry ED Medical Decision Making - Lab Data Result diagrams: 09/20/19 15:17 09/20/19 15:17 Lab Results 09/20/19 09/20/19 09/20/19 Range/Units 15:17 15:17 15:17 WBC 5.1 (4.5-11.0) K/mm3 RBC 5.87 H (3.65-5.03) M/mm3 Hgb 13.3 (10.1-14.3) gm/dl Hct 42.1 (30.3-42.9) % MCV 72 L (79-97) fl MCH 23 L (28-32) pg MCHC 32 (30-34) % RDW 16.3 H (13.2-15.2) % Plt Count 262 (140-440) K/mm3 Lymph % (Auto) 51.9 H (13.4-35.0) % Alexander % (Auto) 8.5 H (0.0-7.3) % Eos % (Auto) 1.3 (0.0-4.3) % Baso % (Auto) 1.1 (0.0-1.8) % Lymph # 2.6 (1.2-5.4) K/mm3 Alexander # 0.4 (0.0-0.8) K/mm3 Eos # 0.1 (0.0-0.4) K/mm3 Baso # 0.1 (0.0-0.1) K/mm3 Seg Neutrophils % 37.2 L (40.0-70.0) % Seg Neutrophils # 1.9 (1.8-7.7) K/mm3 Sodium 141 (137-145) mmol/L Potassium 3.9 (3.6-5.0) mmol/L Chloride 102.6 (98-107) mmol/L Carbon Dioxide 21 L (22-30) mmol/L Anion Gap 21 mmol/L BUN 13 (7-17) mg/dL Creatinine 0.9 (0.7-1.2) mg/dL Estimated GFR > 60 ml/min BUN/Creatinine Ratio 14 % Glucose 76 (65-100) mg/dL Calcium 9.3 (8.4-10.2) mg/dL Phosphorus 3.40 (2.5-4.5) mg/dL Magnesium 1.90 (1.7-2.3) mg/dL Total Bilirubin 0.40 (0.1-1.2) mg/dL AST 17 (5-40) units/L ALT 10 (7-56) units/L Alkaline Phosphatase 91 (35-129) units/L Total Creatine Kinase 217 H (30-135) units/L CK-MB (CK-2) 2.7 (0.0-4.0) ng/mL CK-MB (CK-2) Rel Index 1.2 (0-4) Troponin T < 0.010 (0.00-0.029) ng/mL Total Protein 8.0 (6.3-8.2) g/dL Albumin 4.3 (3.9-5) g/dL Albumin/Globulin Ratio 1.2 % Urine Color (Yellow) Urine Turbidity (Clear) Urine pH (5.0-7.0) Urine Protein (Negative) mg/dL Urine Glucose (UA) (Negative) mg/dL Urine Ketones (Negative) mg/dL Urine Nitrite (Negative) Ur Reducing Substances Urine Ictotest (Negative) Urine Urobilinogen (<2.0) mg/dL Ur Leukocyte Esterase (Negative) Urine WBC (Auto) (0.0-6.0) /HPF Urine RBC (Auto) (0.0-6.0) /HPF Urine Bacteria (Auto) (Negative) /HPF Urine Mucus /HPF Urine Opiates Screen Urine Methadone Screen Ur Barbiturates Screen Ur Phencyclidine Scrn Ur Amphetamines Screen U Benzodiazepines Scrn Urine Cocaine Screen U Marijuana (THC) Screen Drugs of Abuse Note 09/20/19 09/20/19 Range/Units 15:31 Unknown WBC (4.5-11.0) K/mm3 RBC (3.65-5.03) M/mm3 Hgb (10.1-14.3) gm/dl Hct (30.3-42.9) % MCV (79-97) fl MCH (28-32) pg MCHC (30-34) % RDW (13.2-15.2) % Plt Count (140-440) K/mm3 Lymph % (Auto) (13.4-35.0) % Alexander % (Auto) (0.0-7.3) % Eos % (Auto) (0.0-4.3) % Baso % (Auto) (0.0-1.8) % Lymph # (1.2-5.4) K/mm3 Alexander # (0.0-0.8) K/mm3 Eos # (0.0-0.4) K/mm3 Baso # (0.0-0.1) K/mm3 Seg Neutrophils % (40.0-70.0) % Seg Neutrophils # (1.8-7.7) K/mm3 Sodium (137-145) mmol/L Potassium (3.6-5.0) mmol/L Chloride (98-107) mmol/L Carbon Dioxide (22-30) mmol/L Anion Gap mmol/L BUN (7-17) mg/dL Creatinine (0.7-1.2) mg/dL Estimated GFR ml/min BUN/Creatinine Ratio % Glucose (65-100) mg/dL Calcium (8.4-10.2) mg/dL Phosphorus (2.5-4.5) mg/dL Magnesium (1.7-2.3) mg/dL Total Bilirubin (0.1-1.2) mg/dL AST (5-40) units/L ALT (7-56) units/L Alkaline Phosphatase (35-129) units/L Total Creatine Kinase (30-135) units/L CK-MB (CK-2) (0.0-4.0) ng/mL CK-MB (CK-2) Rel Index (0-4) Troponin T (0.00-0.029) ng/mL Total Protein (6.3-8.2) g/dL Albumin (3.9-5) g/dL Albumin/Globulin Ratio % Urine Color Colorless (Yellow) Urine Turbidity Clear (Clear) Urine pH 6.5 (5.0-7.0) Urine Protein <15 mg/dl (Negative) mg/dL Urine Glucose (UA) Negative (Negative) mg/dL Urine Ketones Negative (Negative) mg/dL Urine Nitrite Negative (Negative) Ur Reducing Substances Not Reportable Urine Ictotest Negative (Negative) Urine Urobilinogen < 2.0 (<2.0) mg/dL Ur Leukocyte Esterase Negative (Negative) Urine WBC (Auto) 1.0 (0.0-6.0) /HPF Urine RBC (Auto) < 1.0 (0.0-6.0) /HPF Urine Bacteria (Auto) 1+ (Negative) /HPF Urine Mucus Few /HPF Urine Opiates Screen Presumptive negative Urine Methadone Screen Presumptive negative Ur Barbiturates Screen Presumptive negative Ur Phencyclidine Scrn Presumptive negative Ur Amphetamines Screen Presumptive negative U Benzodiazepines Scrn Presumptive negative Urine Cocaine Screen Presumptive negative U Marijuana (THC) Screen Presumptive positive Drugs of Abuse Note Disclamer - EKG Data -: EKG Interpreted by Me EKG shows normal: sinus rhythm Rate: normal - Radiology Data Radiology results: report reviewed Critical care attestation.: If time is entered above; I have spent that time in minutes in the direct care of this critically ill patient, excluding procedure time. ED Disposition Clinical Impression: Syncope and collapse Disposition: DC-09 OP ADMIT IP TO THIS HOSP Is pt being admited?: Yes Does the pt Need Aspirin: Yes Condition: Fair Instructions: Syncope (ED)
[2019-09-20] MEDS ORDERED: ASPIRIN 81 MG TAB CHEW PO ONE (19:32)
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
[2019-09-20] MEDS ORDERED: ACETAMINOPHEN 325 MG TAB PO PRN ×2 (21:01→21:05)
[2019-09-20] MEDS ORDERED: ALPRAZolam 0.5 MG TAB PO PRN (21:01)
[2019-09-20] MEDS ORDERED: HYDROmorphone 1 MG/1 ML INJ IV PRN (21:05)
[2019-09-20] MEDS ORDERED: FAMOTIDINE 20 MG TAB ONE (22:00)
[2019-09-20] MEDS ORDERED: HEPARIN 5,000 UNIT/1 ML VIAL ONE (22:01)
[2019-09-20] MEDS ORDERED: VALSARTAN 160MG TAB ONE (22:01)
[2019-09-20] MEDS ORDERED: GABAPENTIN 100 MG CAP ONE (22:01)
[2019-09-20] MEDS ORDERED: oxyCODONE /ACETAMINOPHEN 5-325MG TAB ONE (22:02)
[2019-09-20] MEDS: VALSARTAN 160MG TAB PO SCH (22:04)
[2019-09-20] MEDS: FAMOTIDINE 20 MG TAB PO SCH (22:06)
[2019-09-20] MEDS: GABAPENTIN 100 MG CAP PO SCH (22:07)
[2019-09-20] MEDS: oxyCODONE /ACETAMINOPHEN 5-325MG TAB PO PRN (22:07)
[2019-09-20] MEDS: HEPARIN 5,000 UNIT/1 ML VIAL SUB-Q SCH (22:08)
[2019-09-20] MEDS ORDERED: ASPIRIN 81 MG TAB CHEW ONE (22:15)
[2019-09-20] MEDS: NIFEdipine XL 30 MG TAB PO SCH (22:18)
[2019-09-21] MEDS: ONDANSETRON 4 MG/2 ML INJ IV PRN ×3 (01:04→20:18)
[2019-09-21 05:55] LABS: Hematocrit 38.8 % (30.3-42.9); Hemoglobin 12.6 gm/dl (10.1-14.3); Mean Corpuscular HGB Conc 32 % (30-34); Mean Corpuscular Volume 71 fl (79-97); Platelet Count 259 K/mm3 (140-440); Red Blood Count 5.49 M/mm3 (3.65-5.03); Red Cell Distribution Width 16.2 % (13.2-15.2)
[2019-09-21] MEDS: GABAPENTIN 100 MG CAP PO SCH ×3 (06:30→22:13)
[2019-09-21 07:15] LABS: Alanine Aminotransferase 10 units/L (7-56); Albumin 3.6 g/dL (3.9-5); BUN/Creatinine Ratio 16; Blood Urea Nitrogen 13 mg/dL (7-17); Calcium 8.8 mg/dL (8.4-10.2); Hemolysis Index 6
[2019-09-21 07:57] LABS: Basophils % (Manual) 0 % (0.0-1.8); Total Cells Counted 100
[2019-09-21 07:58] LABS: Anisocytosis 1+; Hypochromasia 1+; Poikilocytosis Few
[2019-09-21 07:59] LABS: Large Platelets Rare; Platelet Estimate Consistent w Auto
[2019-09-21] MEDS ORDERED: POTASSIUM CHLORIDE ER 20 MEQ TAB PO NR (09:01)
[2019-09-21 10:04] LABS: % Iron Saturation 20.47 %
--- NOTE | 2019-09-21 10:29 | Consultation ---
History of Present Illness Consult date: 09/21/19 Consult reason: syncope History of present illness: Patient is a 63-year old woman admitted with syncope thus this cardiac consultation. Patient reports headaches, light headedness, shortness of breath and nausea just prior to passing out. She denies chest pain and had no palpitations. Patient reports a systolic blood pressure of 178 when she came to herself. A head CT scan reports no acute intracranial abnormalities. The patient's presenting EKG is sinus rhythm, no acute ischemic changes. Her latest cardiac workup with an echocardiogram, done a year ago, reports a normal left ventricular systolic function, ejection fraction 55-60%. Medications and Allergies Allergies Allergy/AdvReac Type Severity Reaction Status Date / Time No Known Allergies Allergy Verified 09/20/19 15:01 Home Medications Medication Instructions Recorded Confirmed Last Taken Type ALPRAZolam [Xanax TAB] 0.5 mg PO TID PRN #15 tab 07/11/18 09/20/19 09/20/19 Rx Acetaminophen [Acetaminophen TAB] 650 mg PO Q4H PRN #15 tablet 07/11/18 09/20/19 09/20/19 Rx Amoxicillin/Potassium Clav 1 each PO BID #20 tablet 07/11/18 09/20/19 09/20/19 Rx [Augmentin 875-125 Tablet] Aspirin 325 mg PO QDAY #30 tablet 07/11/18 09/20/19 09/20/19 Rx AtorvaSTATin [Lipitor] 40 mg PO QHS #30 tablet 07/11/18 09/20/19 09/20/19 Rx Famotidine [Pepcid] 20 mg PO BID #10 tablet 07/11/18 09/20/19 09/20/19 Rx Gabapentin 100 mg PO Q8HR #90 capsule 07/11/18 09/20/19 09/20/19 Rx Losartan [Cozaar] 50 mg PO QDAY #30 tablet 07/11/18 09/20/19 09/20/19 Rx oxyCODONE /ACETAMINOPHEN [Percocet 1 tab PO Q6H PRN #12 tablet 07/11/18 09/20/19 09/20/19 Rx 5/325 mg] Active Meds: Active Medications Acetaminophen (Tylenol) 650 mg PO Q4H PRN PRN Reason: Pain MILD(1-3)/Fever >100.5/GRIMM Alprazolam (Xanax) 0.5 mg PO TID PRN PRN Reason: Anxiety Aspirin (Aspirin) 325 mg PO QDAY [facility] Atorvastatin Calcium (Lipitor) 40 mg PO QHS [facility] Last Admin: 09/20/19 22:17 Dose: 40 mg Documented by: Famotidine (Pepcid) 20 mg PO BID [facility] Last Admin: 09/20/19 22:06 Dose: 20 mg Documented by: Gabapentin (Gabapentin) 100 mg PO Q8HR [facility] Last Admin: 09/21/19 06:30 Dose: 100 mg Documented by: Heparin Sodium (Porcine) (Heparin) 5,000 unit SUB-Q Q12HR [facility] Last Admin: 09/20/19 22:08 Dose: 5,000 unit Documented by: Hydromorphone HCl (Dilaudid) 0.5 mg IV Q3H PRN PRN Reason: Pain , Severe (7-10) Nifedipine (Procardia Xl) 30 mg PO QDAY [facility] Last Admin: 09/20/19 22:18 Dose: 30 mg Documented by: Ondansetron HCl (Zofran) 4 mg IV Q8H PRN PRN Reason: Nausea And Vomiting Last Admin: 09/21/19 01:04 Dose: 4 mg Documented by: Oxycodone/Acetaminophen (Percocet 5/325) 1 tab PO Q6H PRN PRN Reason: Pain, Moderate (4-6) Last Admin: 09/20/19 22:07 Dose: 1 tab Documented by: Potassium Chloride (K-Dur) 40 meq PO ONCE NR Stop: 09/21/19 11:00 Sodium Chloride (Sodium Chloride Flush Syringe 10 Ml) 10 ml IV BID [facility] Last Admin: 09/20/19 22:11 Dose: 10 ml Documented by: Sodium Chloride (Sodium Chloride Flush Syringe 10 Ml) 10 ml IV PRN PRN PRN Reason: LINE FLUSH Valsartan (Diovan) 160 mg PO BID [facility] Last Admin: 09/20/19 22:04 Dose: 160 mg Documented by: Physical Examination Vital Signs Temp Pulse Resp BP Pulse Ox 97.9 F 68 18 158/98 100 09/20/19 14:45 09/20/19 14:45 09/20/19 14:45 09/20/19 14:45 09/20/19 14:45 General appearance: no acute distress HEENT: Positive: PERRL Neck: Positive: trachea midline Cardiac: Positive: Reg Rate and Rhythm Lungs: Positive: Normal Breath Sounds Neuro: Positive: Grossly Intact Extremities: Absent: edema Results 09/21/19 05:23 09/21/19 05:23 Cardiac Enzymes 09/20/19 09/21/19 Range/Units 15:17 05:23 AST 17 17 (5-40) units/L CK-MB (CK-2) 2.7 (0.0-4.0) ng/mL CBC 09/20/19 09/21/19 Range/Units 15:17 05:23 WBC 5.1 6.1 (4.5-11.0) K/mm3 RBC 5.87 H 5.49 H (3.65-5.03) M/mm3 Hgb 13.3 12.6 (10.1-14.3) gm/dl Hct 42.1 38.8 (30.3-42.9) % Plt Count 262 259 (140-440) K/mm3 Lymph # 2.6 (1.2-5.4) K/mm3 [place] # 0.4 (0.0-0.8) K/mm3 Eos # 0.1 (0.0-0.4) K/mm3 Baso # 0.1 (0.0-0.1) K/mm3 Comprehensive Metabolic Panel 09/20/19 09/21/19 Range/Units 15:17 05:23 Sodium 141 140 (137-145) mmol/L Potassium 3.9 3.3 L (3.6-5.0) mmol/L Chloride 102.6 102.0 (98-107) mmol/L Carbon Dioxide 21 L 20 L (22-30) mmol/L BUN 13 13 (7-17) mg/dL Creatinine 0.9 0.8 (0.7-1.2) mg/dL Glucose 76 134 H (65-100) mg/dL Calcium 9.3 8.8 (8.4-10.2) mg/dL AST 17 17 (5-40) units/L ALT 10 10 (7-56) units/L Alkaline Phosphatase 91 85 (35-129) units/L Total Protein 8.0 6.8 (6.3-8.2) g/dL Albumin 4.3 3.6 L (3.9-5) g/dL Assessment and Plan Syncope head CT scan is negative for acute abnormalities. Headaches Hypertension Obesity Hypertension We will obtain an echocardiogram for LVEF assessment. Pre-discharge stress thallium test.
[2019-09-21] MEDS: FAMOTIDINE 20 MG TAB PO SCH ×2 (11:11→22:13)
[2019-09-21] MEDS: NIFEdipine XL 30 MG TAB PO SCH (11:11)
[2019-09-21] MEDS: oxyCODONE /ACETAMINOPHEN 5-325MG TAB PO PRN ×2 (11:11→22:14)
[2019-09-21] MEDS: VALSARTAN 160MG TAB PO SCH ×2 (11:12→22:12)
[2019-09-21] MEDS: HEPARIN 5,000 UNIT/1 ML VIAL SUB-Q SCH ×2 (11:12→22:13)
[2019-09-21] MEDS: ASPIRIN 325 MG TAB PO SCH (11:12)
--- NOTE | 2019-09-21 11:40 | Vascular Lab Report ---
Bilateral carotid Doppler. 09/21/2019. HISTORY: Syncope. FINDINGS: Duplex Doppler evaluation of the carotid system was performed with spectral waveform analys is. Antegrade vertebral flow is present bilaterally. Peak systolic velocity at the right internal carotid artery is 74 cm/s. Systolic velocity ratio is 1. 5. Peak systolic velocity at the left internal carotid artery is 76 cm/s. Systolic velocity ratio is 1.4 . Grayscale imaging demonstrates no flow limiting stenosis. IMPRESSION: Stenosis less than 50% bilaterally per NASCET criteria. Signer Name: Chriss Johnson MD Signed: 09/21/2019 11:36 AM Workstation Name: [id number]
[2019-09-21] MEDS ORDERED: FLU VACC QUAD 2019-20 (3 YR UP)/PF 60 MCG/0.5 ML SYRINGE IM ONE (12:00)
--- NOTE | 2019-09-21 15:32 | Progress Note ---
Assessment and Plan Assessment and plan: --Hypokalemia; Replenish per protocol and monitor levels -- Recurrent Syncope and collapse Current Visit: Yes Status: Acute Syncope work up including CDS and ECHO. THC use maybe precipitating facttor Cardiology evaluation noted and appreciated Schedule for stress test tomorrow --Hypertension Current Visit: No Status: Chronic Patient does not want Losartan Changed to Valsartan -- Tetrahydrocannabinol (THC) use disorder Current Visit: Yes Status: Chronic Counselled --Microcytosis Current Visit: Yes Status: Chronic Check Iron level -- DVT prophylaxis Current Visit: No Status: Acute On Heparin History Interval history: Patient seen and examined medical records reviewed Admitted with recurrent episodes of syncope Patient complains of some chest pain No new episodes of syncope Vital signs reviewed Hospitalist Physical - Constitutional Vitals: Temp Pulse Resp BP Pulse Ox 98.4 F 68 20 139/92 100 09/21/19 08:02 09/21/19 11:09 09/21/19 11:11 09/21/19 11:09 09/21/19 03:15 General appearance: Present: no acute distress, well-nourished - EENT Eyes: Present: PERRL, EOM intact - Neck Neck: Present: supple, normal ROM - Respiratory Respiratory effort: normal Respiratory: bilateral: diminished, negative: rales, rhonchi, wheezing - Cardiovascular Rhythm: regular Heart Sounds: Present: S1 & S2 - Extremities Extremities: no ischemia, No edema - Abdominal General gastrointestinal: soft, non-tender, non-distended, normal bowel sounds - Integumentary Integumentary: Present: clear, warm - Psychiatric Psychiatric: appropriate mood/affect, cooperative - Neurologic Neurologic: CNII-XII intact, moves all extremities Results - Labs CBC & Chem 7: 09/21/19 05:23 09/21/19 05:23 Labs: Laboratory Last Values WBC 6.1 K/mm3 (4.5-11.0) 09/21/19 05:23 RBC 5.49 M/mm3 (3.65-5.03) H 09/21/19 05:23 Hgb 12.6 gm/dl (10.1-14.3) 09/21/19 05:23 Hct 38.8 % (30.3-42.9) 09/21/19 05:23 MCV 71 fl (79-97) L 09/21/19 05:23 MCH 23 pg (28-32) L 09/21/19 05:23 MCHC 32 % (30-34) 09/21/19 05:23 RDW 16.2 % (13.2-15.2) H 09/21/19 05:23 Plt Count 259 K/mm3 (140-440) 09/21/19 05:23 Lymph % (Auto) Strike Off Machine Operator 09/21/19 05:23 [place] % (Auto) 8.5 % (0.0-7.3) H 09/20/19 15:17 Eos % (Auto) 1.3 % (0.0-4.3) 09/20/19 15:17 Baso % (Auto) 1.1 % (0.0-1.8) 09/20/19 15:17 Lymph # 2.6 K/mm3 (1.2-5.4) 09/20/19 15:17 [place] # 0.4 K/mm3 (0.0-0.8) 09/20/19 15:17 Eos # 0.1 K/mm3 (0.0-0.4) 09/20/19 15:17 Baso # 0.1 K/mm3 (0.0-0.1) 09/20/19 15:17 Add Manual Diff Complete 09/21/19 05:23 Total Counted 100 09/21/19 05:23 Seg Neutrophils % Strike Off Machine Operator 09/21/19 05:23 Seg Neuts % (Manual) 38.0 % (40.0-70.0) L 09/21/19 05:23 Band Neutrophils % 0 % 09/21/19 05:23 Lymphocytes % (Manual) 58.0 % (13.4-35.0) H 09/21/19 05:23 Reactive Lymphs % (Man) 0 % 09/21/19 05:23 Monocytes % (Manual) 3.0 % (0.0-7.3) 09/21/19 05:23 Eosinophils % (Manual) 1.0 % (0.0-4.3) 09/21/19 05:23 Basophils % (Manual) 0 % (0.0-1.8) 09/21/19 05:23 Metamyelocytes % 0 % 09/21/19 05:23 Myelocytes % 0 % 09/21/19 05:23 Promyelocytes % 0 % 09/21/19 05:23 Blast Cells % 0 % 09/21/19 05:23 Nucleated RBC % Not Reportable 09/21/19 05:23 Seg Neutrophils # 1.9 K/mm3 (1.8-7.7) 09/20/19 15:17 Seg Neutrophils # Man 2.3 K/mm3 (1.8-7.7) 09/21/19 05:23 Band Neutrophils # 0.0 K/mm3 09/21/19 05:23 Lymphocytes # (Manual) 3.5 K/mm3 (1.2-5.4) 09/21/19 05:23 Abs React Lymphs (Man) 0.0 K/mm3 09/21/19 05:23 Monocytes # (Manual) 0.2 K/mm3 (0.0-0.8) 09/21/19 05:23 Eosinophils # (Manual) 0.1 K/mm3 (0.0-0.4) 09/21/19 05:23 Basophils # (Manual) 0.0 K/mm3 (0.0-0.1) 09/21/19 05:23 Metamyelocytes # 0.0 K/mm3 09/21/19 05:23 Myelocytes # 0.0 K/mm3 09/21/19 05:23 Promyelocytes # 0.0 K/mm3 09/21/19 05:23 Blast Cells # 0.0 K/mm3 09/21/19 05:23 WBC Morphology Not Reportable 09/21/19 05:23 Hypersegmented Neuts Not Reportable 09/21/19 05:23 Hyposegmented Neuts Not Reportable 09/21/19 05:23 Hypogranular Neuts Not Reportable 09/21/19 05:23 Smudge Cells Not Reportable 09/21/19 05:23 Toxic Granulation Not Reportable 09/21/19 05:23 Toxic Vacuolation Not Reportable 09/21/19 05:23 Dohle Bodies Not Reportable 09/21/19 05:23 Pelger-Huet Anomaly Not Reportable 09/21/19 05:23 Mikala Rods Not Reportable 09/21/19 05:23 Platelet Estimate Consistent w auto 09/21/19 05:23 Clumped Platelets Not Reportable 09/21/19 05:23 Plt Clumps, EDTA Not Reportable 09/21/19 05:23 Large Platelets Rare 09/21/19 05:23 Giant Platelets Not Reportable 09/21/19 05:23 Platelet Satelliting Not Reportable 09/21/19 05:23 Plt Morphology Comment Not Reportable 09/21/19 05:23 RBC Morphology Not Reportable 09/21/19 05:23 Dimorphic RBCs Not Reportable 09/21/19 05:23 Polychromasia Not Reportable 09/21/19 05:23 Hypochromasia 1+ 09/21/19 05:23 Poikilocytosis Few 09/21/19 05:23 Anisocytosis 1+ 09/21/19 05:23 Microcytosis Not Reportable 09/21/19 05:23 Macrocytosis Not Reportable 09/21/19 05:23 Spherocytes Not Reportable 09/21/19 05:23 Pappenheimer Bodies Not Reportable 09/21/19 05:23 Sickle Cells Not Reportable 09/21/19 05:23 Target Cells Not Reportable 09/21/19 05:23 Tear Drop Cells Not Reportable 09/21/19 05:23 Ovalocytes Not Reportable 09/21/19 05:23 Helmet Cells Not Reportable 09/21/19 05:23 Acosta-Hurt Bodies Not Reportable 09/21/19 05:23 [place] Rings Not Reportable 09/21/19 05:23 Freda Cells Not Reportable 09/21/19 05:23 Bite Cells Not Reportable 09/21/19 05:23 Crenated Cell Not Reportable 09/21/19 05:23 Elliptocytes Not Reportable 09/21/19 05:23 Acanthocytes (Spur) Not Reportable 09/21/19 05:23 Rouleaux Not Reportable 09/21/19 05:23 Hemoglobin C Crystals Not Reportable 09/21/19 05:23 Schistocytes Not Reportable 09/21/19 05:23 Malaria parasites Not Reportable 09/21/19 05:23 Gil Bodies Not Reportable 09/21/19 05:23 Hem Pathologist Commnt No 09/21/19 05:23 Sodium 140 mmol/L (137-145) 09/21/19 05:23 Potassium 3.3 mmol/L (3.6-5.0) L 09/21/19 05:23 Chloride 102.0 mmol/L (98-107) 09/21/19 05:23 Carbon Dioxide 20 mmol/L (22-30) L 09/21/19 05:23 Anion Gap 21 mmol/L 09/21/19 05:23 BUN 13 mg/dL (7-17) 09/21/19 05:23 Creatinine 0.8 mg/dL (0.7-1.2) 09/21/19 05:23 Estimated GFR > 60 ml/min 09/21/19 05:23 BUN/Creatinine Ratio 16 % 09/21/19 05:23 Glucose 134 mg/dL (65-100) H 09/21/19 05:23 Hemoglobin A1c 5.7 % (4-6) 09/20/19 21:45 Calcium 8.8 mg/dL (8.4-10.2) 09/21/19 05:23 Phosphorus 3.40 mg/dL (2.5-4.5) 09/20/19 15:17 Magnesium 1.90 mg/dL (1.7-2.3) 09/20/19 15:17 Iron 35 ug/dL (37-170) L 09/21/19 09:20 TIBC 171 mcg/dL (250-450) L 09/21/19 09:20 % Saturation 20.47 % 09/21/19 09:20 Transferrin 158 mg/dl (192-382) L 09/21/19 09:20 Total Bilirubin < 0.20 mg/dL (0.1-1.2) 09/21/19 05:23 AST 17 units/L (5-40) 09/21/19 05:23 ALT 10 units/L (7-56) 09/21/19 05:23 Alkaline Phosphatase 85 units/L (35-129) 09/21/19 05:23 Total Creatine Kinase 217 units/L (30-135) H 09/20/19 15:17 CK-MB (CK-2) 2.7 ng/mL (0.0-4.0) 09/20/19 15:17 CK-MB (CK-2) Rel Index 1.2 (0-4) 09/20/19 15:17 Troponin T < 0.010 ng/mL (0.00-0.029) 09/21/19 05:23 Total Protein 6.8 g/dL (6.3-8.2) 09/21/19 05:23 Albumin 3.6 g/dL (3.9-5) L 09/21/19 05:23 Albumin/Globulin Ratio 1.1 % 09/21/19 05:23 Urine Color Colorless (Yellow) 09/20/19 15:31 Urine Turbidity Clear (Clear) 09/20/19 15:31 Urine pH 6.5 (5.0-7.0) 09/20/19 15:31 Urine Protein <15 mg/dl mg/dL (Negative) 09/20/19 15:31 Urine Glucose (UA) Negative mg/dL (Negative) 09/20/19 15:31 Urine Ketones Negative mg/dL (Negative) 09/20/19 15:31 Urine Nitrite Negative (Negative) 09/20/19 15:31 Ur Reducing Substances Not Reportable 09/20/19 15:31 Urine Ictotest Negative (Negative) 09/20/19 15:31 Urine Urobilinogen < 2.0 mg/dL (<2.0) 09/20/19 15:31 Ur Leukocyte Esterase Negative (Negative) 09/20/19 15:31 Urine WBC (Auto) 1.0 /HPF (0.0-6.0) 09/20/19 15:31 Urine RBC (Auto) < 1.0 /HPF (0.0-6.0) 09/20/19 15:31 Urine Bacteria (Auto) 1+ /HPF (Negative) 09/20/19 15:31 Urine Mucus Few /HPF 09/20/19 15:31 Urine Opiates Screen Presumptive negative 09/20/19 Unknown Urine Methadone Screen Presumptive negative 09/20/19 Unknown Ur Barbiturates Screen Presumptive negative 09/20/19 Unknown Ur Phencyclidine Scrn Presumptive negative 09/20/19 Unknown Ur Amphetamines Screen Presumptive negative 09/20/19 Unknown U Benzodiazepines Scrn Presumptive negative 09/20/19 Unknown Urine Cocaine Screen Presumptive negative 09/20/19 Unknown U Marijuana (THC) Screen Presumptive positive 09/20/19 Unknown Drugs of Abuse Note Disclamer 09/20/19 Unknown Active Medications - Current Medications Current Medications: Generic Name Dose Route Start Last Admin Trade Name Freq PRN Reason Stop Dose Admin Acetaminophen 650 mg 09/20/19 21:01 Tylenol PO Q4H PRN Pain MILD(1-3)/Fever >100.5/GRIMM Alprazolam 0.5 mg 09/20/19 21:01 Xanax PO TID PRN Anxiety Aspirin 325 mg 09/21/19 10:00 09/21/19 11:12 Aspirin PO 325 mg QDAY ELIDIA Administration Atorvastatin Calcium 40 mg 09/20/19 22:00 09/20/19 22:17 Lipitor PO 40 mg QHS ELIDIA Administration Famotidine 20 mg 09/20/19 22:00 09/21/19 11:11 Pepcid PO 20 mg BID ELIDIA Administration Gabapentin 100 mg 09/20/19 22:00 09/21/19 15:02 Gabapentin PO 100 mg Q8HR ELIDIA Administration Heparin Sodium (Porcine) 5,000 unit 09/20/19 22:00 09/21/19 11:12 Heparin SUB-Q 5,000 unit Q12HR ELIDIA Administration Hydromorphone HCl 0.5 mg 09/20/19 21:05 Dilaudid IV Q3H PRN Pain , Severe (7-10) Nifedipine 30 mg 09/20/19 22:00 09/21/19 11:11 Procardia Xl PO 30 mg QDAY ELIDIA Administration Ondansetron HCl 4 mg 09/20/19 21:05 09/21/19 01:04 Zofran IV 4 mg Q8H PRN Administration Nausea And Vomiting Oxycodone/Acetaminophen 1 tab 09/20/19 21:05 09/21/19 11:11 Percocet 5/325 PO 1 tab Q6H PRN Administration Pain, Moderate (4-6) Sodium Chloride 10 ml 09/20/19 22:00 09/20/19 22:11 Sodium Chloride Flush Syringe 10 Ml IV 10 ml BID ELIDIA Administration Sodium Chloride 10 ml 09/20/19 21:05 Sodium Chloride Flush Syringe 10 Ml IV PRN PRN LINE FLUSH Valsartan 160 mg 09/20/19 22:00 09/21/19 11:12 Diovan PO 160 mg BID ELIDIA Administration
[2019-09-22] MEDS: GABAPENTIN 100 MG CAP PO SCH ×2 (05:41→14:00)
[2019-09-22] MEDS ORDERED: REGADENOSON 0.4 MG/5 ML INJ IV ONE ×2 (08:08→09:11)
--- NOTE | 2019-09-22 09:35 | Event Note ---
Date: 09/22/19 I came to the stress lab for a nuclear stress test for this patient. Prior to beginning the stress test, I was speaking with my employee on the phone regarding which hospital(s) I would be coving today. During the phone conversation, the patient began to make derogatory remarks regarding me to the slot technician (Amina) that was present. The patient was stating "I don't know about this doctor. He don't even know where he supposed to be. Not sure I want him around me". After ending the conversation with my employee, I introduced myself to the patient, at which time the patient asked my name, and then responded that she was going to call me other things, like "doctor forgetful" and "doctor I even know where I am". Then she began to state that "I does not even know if I should have someone like this around me." As the patient's behavior was both extremely rude and derogatory, there will not be a productive therapeutic relationship with this patient. I will no longer see the patient. [facility] will take over the patient care until the time of discharge.
[2019-09-22] MEDS: HEPARIN 5,000 UNIT/1 ML VIAL SUB-Q SCH (10:09)
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
--- NOTE | 2019-09-22 12:01 | Progress Note ---
Assessment and Plan Pt's cardiology service has been transferred from [facility] to [facility] starting today. Proceed with lexiscan MPI stress test. Await findings. Echo reviewed - EF 55-60%, abnormal diastolic function, trace MR and TR. Carotid studies with no significant stenosis. Head CT with NAF. The patient has been seen in conjunction with Dr. Collazo who agrees with the assessment and plan of care. - Patient Problems (1) Syncope Current Visit: Yes Status: Acute (2) Hypertension Current Visit: Yes Status: Chronic Qualifiers: Hypertension type: essential hypertension Qualified Code(s): I10 - Essential (primary) hypertension (3) Marijuana use Current Visit: Yes Status: Chronic (4) Headache Current Visit: Yes Status: Acute Subjective Date of service: 09/22/19 Principal diagnosis: syncope Interval history: pt for stress test today. no current cardiac complaints. in SR on tele with no acute events noted overnight. Objective Last Vital Signs Temp 97.3 F L 09/22/19 04:30 Pulse 67 09/22/19 05:00 Resp 16 09/22/19 04:30 BP 148/85 09/22/19 10:00 Pulse Ox 96 09/22/19 04:30 - Physical Examination General: No Apparent Distress HEENT: Positive: PERRL Neck: Positive: trachea midline Cardiac: Positive: Reg Rate and Rhythm, S1/S2 Lungs: Positive: Decreased Breath Sounds Neuro: Positive: Grossly Intact Abdomen: Negative: Tender Skin: Negative: Rash Musculoskeletal: No Pain Extremities: Absent: edema - Imaging and Cardiology EKG: report reviewed (61/min NSR No acute changes) - Telemetry EKG Rhythm: Sinus Rhythm
[2019-09-22] MEDS: NIFEdipine XL 30 MG TAB PO SCH (12:12)
[2019-09-22] MEDS: VALSARTAN 160MG TAB PO SCH (12:12)
[2019-09-22] MEDS: ASPIRIN 325 MG TAB PO SCH (12:12)
[2019-09-22] MEDS: FAMOTIDINE 20 MG TAB PO SCH (12:13)
[2019-09-22 12:14] VITALS: BP 140/90
[2019-09-22] MEDS: ONDANSETRON 4 MG/2 ML INJ IV PRN (12:55)
--- NOTE | 2019-09-22 12:59 | Treadmill Report ---
SINGLE ISOTOPE DUAL STUDY MYOCARDIAL PERFUSION SCAN REPORT AGE: 63. SEX: Female. REFERRING PHYSICIAN: Jacquie Petersen. Seen and dictated by Phylicia Martinez. DESCRIPTION OF PROCEDURE: The patient received 10 mCi of technetium 99m Myoview intravenously under resting conditions. Resting myocardial perfusion scan was done. Subsequently, the patient underwent Lexiscan stress test as per the protocol. During Lexiscan stress, the patient received 28 mCi of technetium 99m Myoview intravenously. After 30-60 minutes, post stress images were done. Computerized reconstruction images were performed for analysis. The post-stress images revealed mild transient ischemic dilatation of the left ventricle with TID ratio of 1.16. No perfusion abnormality was seen in the stress images. Cinematic display of the gated study revealed normal left ventricular systolic function with left ventricular ejection fraction of 65%. No wall motion abnormality was seen. The resting images were also normal. CONCLUSION: 1. Mild transient ischemic dilatation of left ventricle in the stress images with TID ratio of 1.16, which is of uncertain significance. 2. No perfusion abnormality of the left ventricular myocardium was demonstrated in the resting as well as stress images obtained after the patient underwent Lexiscan stress test. 3. No wall motion abnormality. 4. Normal left ventricular ejection fraction of 65%. [facility]# [id number] [facility]
--- NOTE | 2019-09-22 13:10 | Event Note ---
Date: 09/22/19 S/p lexiscan MPI stress test this AM which was negative. Currently stable cardiac status. Pt may discharge home from cardiology standpoint. Can consider OP Holter study if symptoms reoccur. Recommend pt follow up with her primary market research manager, Dr. Childs, within 1-2 weeks. Richa HASSAN NP / DR. BARKSDALE
--- NOTE | 2019-09-22 14:37 | Discharge Summary ---
Providers - Providers Date of Admission: 09/21/19 16:22 Date of discharge: 09/22/19 Attending physician: DOMENICA SOSA 09/20/19 21:05 Consult to Physician [CONS] Routine Comment: Consulting Provider: KHANH BAIRD Physician Instructions: Reason For Exam: syncope Primary care physician: CHRIS HIDALGO Hospitalization Reason for admission: syncope Condition: Fair Pertinent studies: CT head Echocardiogram Carotid Doppler Stress test Hospital course: The patient presents to the emergency department with a chief complaint of syncopal episode at [facility] while shopping. She had a similar episode of syncope in the past, admitted symptomatically managed evaluated by cardiology subsequently underwent stress test which was negative. Reports ischemia Patient's medications were optimized, today patient is comfortable in no new complaints Advised to follow private manager intensive care unit in 1-2 weeks. Possible Holter monitors placement should she have recurrent episodes of syncope or dizziness by manager intensive care unit.Patient's vital signs are stable physical examination unremarkable prior to discharge Needed by cardiology, advised to quit recreational drug use patient verbalized understanding Discharge diagnosis; --Hypokalemia; Replenish per protocol and monitor levels -- Recurrent Syncope and collapse Current Visit: Yes Status: Acute Syncope work up including CDS and ECHO. THC use advised to quit ecreational drug use Cardiology evaluation noted and appreciated stress test negative cleared by cardiology --Hypertension Current Visit: No Status: Chronic Patient does not want Losartan Changed to Valsartan -- Tetrahydrocannabinol (THC) use disorder Current Visit: Yes Status: Chronic Counselled --Microcytosis Current Visit: Yes Status: Chronic Check Iron level -- DVT prophylaxis Current Visit: No Status: Acute On Heparin Disposition: - TO HOME OR SELFCARE Time spent for discharge: 32 min Core Measure Documentation - Palliative Care Palliative Care/ Comfort Measures: Not Applicable - Core Measures Any of the following diagnoses?: none Exam - Constitutional Vitals: Temp Pulse Resp BP Pulse Ox 97.3 F L 90 20 140/90 99 09/22/19 04:30 09/22/19 13:00 09/22/19 12:11 09/22/19 12:12 09/22/19 13:00 General appearance: Present: no acute distress, well-nourished, obese - EENT Eyes: Present: PERRL, EOM intact - Neck Neck: Present: supple, normal ROM - Respiratory Respiratory effort: normal Respiratory: bilateral: diminished, negative: rales, rhonchi, wheezing - Cardiovascular Rhythm: regular Heart Sounds: Present: S1 & S2 - Extremities Extremities: no ischemia, No edema - Abdominal General gastrointestinal: Present: soft, non-tender, non-distended, normal bowel sounds - Integumentary Integumentary: Present: clear, warm - Musculoskeletal Musculoskeletal: strength equal bilaterally - Psychiatric Psychiatric: appropriate mood/affect, cooperative - Neurologic Neurologic: CNII-XII intact, moves all extremities Plan Activity: advance as tolerated Diet: other (cardiac diet) Additional Instructions: Fall precautions. If you have chest pain, shortness of breath or dizziness. Contact M.D. Or go to emergency room as needed Follow up with: PRIMARY CARE, [Referring] - 3-5 Days CHRIS HIDALGO MD [Primary Care Provider] - 7 Days Prescriptions: Aspirin 325 mg PO QDAY #30 tablet Valsartan [Diovan] 160 mg PO BID #60 tablet AtorvaSTATin [Lipitor] 40 mg PO QHS #30 tablet Famotidine [Pepcid] 20 mg PO BID #10 tablet NIFEdipine XL [Procardia Xl] 30 mg PO QDAY #30 tablet ALPRAZolam [Xanax TAB] 0.5 mg PO TID PRN #15 tab PRN Reason: Anxiety
== END 2019-09-22 16:00 | disposition home or self-care (01) | DRG 312 ==
LOC: ED 14:41 → 4A 20:15 → OBSVTOIN 09-21 16:22
PROVIDERS: ADMIT Internal Medicine; ATTEND Internal Medicine
DX: R55 Syncope and collapse (principal); E87.6 Hypokalemia; I10 Essential (primary) hypertension; F12.90 Cannabis use, unspecified, uncomplicated; D75.89 Other specified diseases of blood and blood-forming organs; R51 Headache; F41.9 Anxiety disorder, unspecified; E66.9 Obesity, unspecified; F17.200 Nicotine dependence, unspecified, uncomplicated; Z79.899 Other long term (current) drug therapy; Z79.82 Long term (current) use of aspirin; Z68.36 Body mass index [BMI] 36.0-36.9, adult; Z71.51 Drug abuse counseling and surveillance of drug abuser; Z86.73 Personal history of transient ischemic attack (TIA), and cerebral infarction without residual deficits; Z90.710 Acquired absence of both cervix and uterus; Z82.49 Family history of ischemic heart disease and other diseases of the circulatory system
CPT/HCPCS: 36415; 70450; 78452; 80053; 80307; 81001; 82550; 82553; 83036; 83550; 83735; 84100; 84484; 85007; 85025; 90686; 93005; 93010; 93017; 93306; 93880; 96360; 99406; G0378; A9270-GY; A9502; J1644; J2405; J2785